=== PATIENT | male | born 1975 | race Caucasian/White ===

== ENCOUNTER 2020-07-11 05:51 | Outpatient (CLI) | payer OTHER ==
[~2020-07-11] VITALS: Ht 182.9 cm; Wt 98.1 kg
[~2020-07-11 05:51] MED LIST: GABA-488 PO; MELO15TA39 PO; PANT40TA2 PO; SUCR1TAB36 PO; VENL150C PO
== END 2020-07-12 09:27 | disposition home or self-care (01) ==
LOC: PREOP 05:51
PROVIDERS: ATTEND Surgery
DX: Z01.818 Encounter for other preprocedural examination (principal)

== ENCOUNTER 2020-07-22 13:25 | Day surgery (SDC) | payer OTHER ==
[2020-07-22] VITALS (8 sets, daily range): BP systolic 122–164; BP diastolic 74–88
[~2020-07-22] VITALS: Ht 182 cm; Wt 101.0 kg
[2020-07-22] MEDS ORDERED: LACTATED RINGERS 1,000 ML IV STA (13:30)
[2020-07-22] MEDS ORDERED: LACTATED RINGERS 1,000 ML IV ONE (13:39)
[2020-07-22] MEDS ORDERED: MIDAZOLAM 2 MG/2 ML (VERSED) VIAL ONE (14:17)
[2020-07-22] MEDS ORDERED: PROPOFOL INJECTION 50 ML IV ONE (14:17)
--- NOTE | 2020-07-22 14:28 | Progress Note-Pre Operative ---
Pre-Operative Progress Note H&P Reviewed The H&P was reviewed, patient examined and no changes noted. Time Seen by Provider: 14:25 Date H&P Reviewed: Jul 22, 2020 Time H&P Reviewed: 14:25 Pre-Operative Diagnosis: rectal bleed ABUNDIO RIDLEY DO Jul 22, 2020 14:28
--- NOTE | 2020-07-22 15:01 | Progress Note-Post Operative ---
Post-Operative Progess Note Surgeon (s)/Cycle Specialist (s) Surgeon ABUNDIO RIDLEY DO Cycle Specialist: none Pre-Operative Diagnosis rectal bleed Post-Operative Diagnosis Colitis Melanosis Coli Int hemorrhoids Procedure & Operative Findings Date of Procedure 07/22/20 Procedure Performed/Findings PROCEDURE NOTE: After informed consent was obtained, the patient was brought to the endoscopy suite, placed in bed in left lateral decubitus position. He was administered IV sedation by the BELT LOOP MAKER who then monitored him vitals the entire time, heart rate, blood pressure and pulse ox, started the colonoscopy. On the way in, noted what looked like Melanosis Coli, took a picture of this, then pushed all the way to the cecum about 150 cm in, took a picture of the appendiceal orifice and noted the ileo-cecal valve. Then slowly withdrew the scope insufflating to look circumferentially at the marquez looking at the cecum, up the ascending colon to the hepatic flexure, down the transverse colon. In the transverse colon and descending colon; saw what looked like colitis and biopsise were done here. To the splenic flexure, into the descending colon down into the sigmoid and finally into the rectum, retroflexed in the rectal vault, saw sone minimal internal hemorrhoids and took a picture.Then removed the scope. The patient tolerated the procedure. He was recovered in endoscopy suite. Anesthesia Type IV sedation by BELT LOOP MAKER Estimated Blood Loss Estimated blood loss (mL): scant Specimens/Packing Specimens Removed transverse colon bx desc colon bx ABUNDIO RIDLEY DO Jul 22, 2020 15:01
--- NOTE | 2020-07-22 15:02 | Endoscopy Discharge Instruct ---
Endo Procedure/Findings Findings 1.: Colitis 2.: Internal Hemorrhoids Discharge Instructions - Activity: You might feel a little sleepy until tomorrow. This is due to the medicine you received to relax you. Until tomorrow, you should: NOT drive a car, operate machinery or power tools. NOT drink any alcoholic beverages. NOT make any important decisions or sign importortant papers. Do not return to work until tomorrow, unless otherwise instructed. Resume previous activities tomorrow. Diet: Start by taking liquids. If you tolerate liquids, advance to solid food. 1.: Colonscopy in 5 years Notify Physician - If you experience excessive bleeding, unusual abdominal pain, fever, or chest pain, contact your doctor immediately. ABUNDIO RIDLEY DO Jul 22, 2020 15:02
--- NOTE | 2020-07-22 15:15 | Anesthesia-General Post-Op ---
MAC Patient Condition Mental Status/LOC: Same as Preop Cardiovascular: Satisfactory Nausea/Vomiting: Absent Respiratory: Satisfactory Pain: Controlled Complications: Absent Post Op Complications Complications None Follow Up Care/Instructions Patient Instructions None needed. Anesthesiology Discharge Order Discharge Order Patient is doing well, no complaints, stable vital signs, no apparent adverse anesthesia problems. TEN BROWN DO Jul 22, 2020 15:15
== END 2020-07-22 15:45 | disposition home or self-care (01) ==
LOC: ENDO 13:25
PROVIDERS: ATTEND Surgery
DX: K52.9 Noninfective gastroenteritis and colitis, unspecified (principal); K64.8 Other hemorrhoids; K62.5 Hemorrhage of anus and rectum; L81.4 Other melanin hyperpigmentation; F32.9 Major depressive disorder, single episode, unspecified; K60.1 Chronic anal fissure; Z79.899 Other long term (current) drug therapy; Z80.9 Family history of malignant neoplasm, unspecified; Z86.010 Personal history of colon polyps